=== PATIENT | male | born 1995 | race African-American/Black ===

== ENCOUNTER 2017-10-19 18:16 | Emergency (ER) | payer SELFPAY ==
[~2017-10-19] VITALS: Ht 190.5 cm; Wt 75.7 kg
[2017-10-19] MEDS ORDERED: IBUPROFEN 600MG TABLET PO STA (18:34)
[2017-10-19 18:55] LABS: BASOPHILS % 0.5 % (0.0-2.0); EOSINOPHILS % 1.7 % (0.0-5.0); HEMATOCRIT. 44.8 % (42.0-52.0); LYMPHOCYTES % 49.4 % (20.0-50.0); MEAN CORPUSCULAR HEMOGLOBIN 29.4 pg (28.0-32.0); MEAN CORPUSCULAR VOLUME 87.6 fL (80.0-94.0); MEAN PLATELET VOLUME 8.5 fl (7.4-10.4); MONOCYTES % 10.4 % (2.0-8.0); PLATELET 173 x1000/uL (130-400); RED BLOOD CELL COUNT 5.11 mill/uL (4.7-6.1)
[2017-10-19 18:56] LABS: CHLORIDE 105 mEq/L (98-107)
[2017-10-19 19:03] LABS: CARBON DIOXIDE 29 mEq/L (21-32)
[2017-10-19 21:04] VITALS: BP 138/77
== END 2017-10-19 21:06 | disposition home or self-care (01) ==
LOC: ER 18:46
DX: R07.89 Other chest pain (principal); F12.90 Cannabis use, unspecified, uncomplicated
CPT/HCPCS: 36415; 71010; 80053; 85025; 93005; 99285

== ENCOUNTER 2021-02-25 14:26 | Emergency (ER) | payer SELFPAY ==
[~2021-02-25] VITALS: Ht 190.5 cm; Wt 80.0 kg
[2021-02-25] MEDS ORDERED: NAPR-1176 MT (14:50)
[2021-02-25] MEDS ORDERED: DOCU-150 MT (14:50)
[2021-02-25] MEDS ORDERED: HYDR30CR80 TP (14:50)
[2021-02-25] MEDS ORDERED: HYDR25SU37 RC (14:50)
[2021-02-25] MEDS ORDERED: KETOROLAC 60MG/2ML VIAL IM ONE (15:00)
[2021-02-25] MEDS ORDERED: HYDROCORTISONE 1% RECTAL CREAM 30GM PR SCH (15:00)
[2021-02-25] MEDS ORDERED: HYDROCODONE/ACETAMINOPHEN 10/325MG TABLET PO ONE (15:00)
[2021-02-25 15:39] VITALS: BP 136/83
[2021-02-26] MEDS ORDERED: IBUP-2028 MT (20:58)
[2021-02-26] MEDS ORDERED: PSYL0.4C2 MT (20:58)
== END 2021-02-25 15:39 | disposition home or self-care (01) ==
LOC: ER 14:35
DX: K64.4 Residual hemorrhoidal skin tags (principal); F12.10 Cannabis abuse, uncomplicated; Z79.899 Other long term (current) drug therapy
CPT/HCPCS: 96372; 99283; J1885

== ENCOUNTER 2021-02-26 20:08 | Emergency (ER) | payer SELFPAY ==
[~2021-02-26] VITALS: Ht 185.4 cm; Wt 80.0 kg
[~2021-02-26 20:08] MED LIST: DOCU-150 MT; HYDR25SU37 RC; HYDR30CR80 TP; NAPR-1176 MT
[2021-02-26] MEDS ORDERED: IBUPROFEN 600MG TABLET PO ONE (20:45)
[2021-02-26] MEDS ORDERED: IBUP-2028 MT (20:58)
[2021-02-26] MEDS ORDERED: PSYL0.4C2 MT (20:58)
[2021-02-26] MEDS ORDERED: HYDROCODONE/ACETAMINOPHEN 5/325MG TABLET PO ONE (21:00)
[2021-02-26] MEDS ORDERED: KETOROLAC 60MG/2ML VIAL IM ONE (21:00)
[2021-02-26 21:01] VITALS: BP 124/61
== END 2021-02-26 21:57 | disposition home or self-care (01) ==
LOC: ER 20:08
DX: K64.4 Residual hemorrhoidal skin tags (principal); K60.2 Anal fissure, unspecified; R03.0 Elevated blood-pressure reading, without diagnosis of hypertension
CPT/HCPCS: 96372; 99283; J1885

== ENCOUNTER 2021-02-28 12:56 | Inpatient (IN) | payer OTHER ==
[~2021-02-28] VITALS: Ht 190.5 cm; Wt 80.3 kg
[~2021-02-28 12:56] MED LIST changes: +IBUP-2028 MT; +PSYL0.4C2 MT
[2021-02-28] MEDS ORDERED: MORPHINE SULFATE 4 MG/ML CPJ (NOT FOR IM USE) IV STA (13:34)
[2021-02-28] MEDS ORDERED: ONDANSETRON HCL 4MG/2ML INJ IV STA (13:34)
[2021-02-28] MEDS ORDERED: SODIUM CHLORIDE 0.9% 1,000 ML IV ONE (13:45)
[2021-02-28] MEDS ORDERED: ONDANSETRON HCL 4MG/2ML INJ IV ONE (13:45)
[2021-02-28] MEDS ORDERED: VANCOMYCIN 1 G PREMIX 200 ML IV SCH (13:45)
[2021-02-28] MEDS ORDERED: PIPERACILLIN/TAZOBACTAM 3.375GM/50ML PREMIX IV ONE (13:45)
[2021-02-28] MEDS ORDERED: PIPERACILLIN/TAZ 3.375G PREMIX 50 ML IV NR (14:00)
[2021-02-28 15:05] LABS: HEMATOCRIT. 38.5 % (42.0-52.0); HEMOGLOBIN. 12.9 g/dL (14.0-18.0); MEAN CORPUSCULAR HEMOGLOBIN 29.3 pg (28.0-32.0); MEAN CORPUSCULAR VOLUME 87.2 fL (80.0-94.0); MEAN PLATELET VOLUME 8.2 fl (7.4-10.4); PLATELET 286 x1000/uL (130-400); RED BLOOD CELL COUNT 4.41 mill/uL (4.7-6.1); RED CELL DISTRIBUTION WIDTH 13.8 % (11.6-14.6)
[2021-02-28 15:12] LABS: CHLORIDE 97 mEq/L (98-107)
[2021-02-28 15:13] LABS: INR 1.2; PROTHROMBIN TIME 12.8 sec (9.6-11.0)
[2021-02-28 15:18] LABS: ETHANOL BLOOD < 10 mg/dL
[2021-02-28] MEDS ORDERED: LIDOCAINE HCL 1% 20ML VIAL (Pyxis) INJ INFIL ONE (15:30)
[2021-02-28 16:26] LABS: PLATELET ESTIMATE NORMAL
[2021-02-28 17:24] VITALS: BP 134/73
[2021-02-28] MEDS: MORPHINE SULFATE 2 MG/ML CPJ (NOT FOR IM USE) IV PRN (18:24)
[2021-02-28] MEDS: SODIUM CHLORIDE 0.9% 1,000 ML IV SCH (18:30)
[2021-02-28 20:34] VITALS: BP 133/83
[2021-02-28] MEDS: VANCOMYCIN 1 G PREMIX 200 ML IV SCH (21:53)
[2021-02-28] MEDS: PIPERACILLIN/TAZOBACTAM 3.375 G in DEXT 5% WATER 100 ML IV SCH (23:37)
[2021-03-01] MEDS ORDERED: PIPERACILLIN/TAZOBACTAM 3.375 G/VIAL IV SCH
[2021-03-01] MEDS: HYDROCODONE/APAP 7.5/325MG 1 TAB TABLET PO PRN (01:41)
[2021-03-01] MEDS: SODIUM CHLORIDE 0.9% 1,000 ML IV SCH ×3 (05:33→22:46)
[2021-03-01] MEDS: PIPERACILLIN/TAZOBACTAM 3.375 G in DEXT 5% WATER 100 ML IV SCH ×3 (05:33→17:40)
[2021-03-01] MEDS: VANCOMYCIN 1 G PREMIX 200 ML IV SCH ×3 (06:15→22:46)
[2021-03-01 06:19] LABS: HEMATOCRIT. 34.9 % (42.0-52.0); HEMOGLOBIN. 11.5 g/dL (14.0-18.0); MEAN CORPUSCULAR VOLUME 87.8 fL (80.0-94.0); MEAN PLATELET VOLUME 8.8 fl (7.4-10.4); PLATELET 287 x1000/uL (130-400); RED BLOOD CELL COUNT 3.98 mill/uL (4.7-6.1); RED CELL DISTRIBUTION WIDTH 14.1 % (11.6-14.6)
[2021-03-01 06:24] LABS: CHLORIDE 98 mEq/L (98-107)
[2021-03-01 08:00] VITALS: BP 108/70
[2021-03-01 12:00] VITALS: BP 107/75
[2021-03-01] MEDS ORDERED: IOHEXOL-300 100 ML BOTTLE ONE (12:33)
[2021-03-01 16:00] VITALS: BP 103/66
[2021-03-01] MEDS: MORPHINE SULFATE 2 MG/ML CPJ (NOT FOR IM USE) IV PRN (16:06)
[2021-03-01] MEDS: ACETAMINOPHEN 325MG TABLET PO PRN (17:40)
[2021-03-01 18:55] LABS: PLATELET ESTIMATE NORMAL
[2021-03-01 20:25] VITALS: BP 119/73
[2021-03-02] VITALS (7 sets, daily range): BP systolic 112–126; BP diastolic 69–82
[2021-03-02] MEDS: HYDROCODONE/APAP 7.5/325MG 1 TAB TABLET PO PRN (00:01)
[2021-03-02] MEDS: PIPERACILLIN/TAZOBACTAM 3.375 G in DEXT 5% WATER 100 ML IV SCH ×5 (00:01→23:48)
[2021-03-02] MEDS: MORPHINE SULFATE 2 MG/ML CPJ (NOT FOR IM USE) IV PRN (05:10)
[2021-03-02 07:01] LABS: HEMATOCRIT. 35.4 % (42.0-52.0); HEMOGLOBIN. 11.3 g/dL (14.0-18.0); MEAN CORPUSCULAR HEMOGLOBIN 27.9 pg (28.0-32.0); MEAN CORPUSCULAR VOLUME 87.6 fL (80.0-94.0); MEAN PLATELET VOLUME 8.1 fl (7.4-10.4); PLATELET 319 x1000/uL (130-400); RED BLOOD CELL COUNT 4.05 mill/uL (4.7-6.1)
[2021-03-02 07:19] LABS: CHLORIDE 103 mEq/L (98-107)
[2021-03-02 07:28] LABS: TOTAL IRON BINDING CAPACITY 199 ug/dL (250-450)
[2021-03-02] MEDS: VANCOMYCIN 1 G PREMIX 200 ML IV SCH ×3 (07:33→22:30)
[2021-03-02 07:46] LABS: VITAMIN B12 SERUM 1455 pg/mL (211-911)
[2021-03-02] MEDS ORDERED: ERGOCALCIFEROL 50000UNITS CAPSULE PO SCH (08:00)
[2021-03-02 08:11] LABS: A/G RATIO 0.6 (0.7-1.7); ALBUMIN 2.3 g/dL (2.9-4.4); ALPHA-1-GLOBULIN 0.5 g/dL (0.0-0.4); ALPHA-2-GLOBULIN 0.9 g/dL (0.4-1.0); GAMMA GLOBULINS 1.6 g/dL (0.4-1.8); GLOBULIN TOTAL 4.1 g/dL (2.2-3.9); M-SPIKE Not Observed g/dL (Not Observed); TOTAL PROTEIN SERUM 6.4 g/dL (6.0-8.5)
[2021-03-02 08:30] LABS: PHOSPHORUS 4.5 mg/dL (2.5-4.9)
[2021-03-02] MEDS: SODIUM CHLORIDE 0.9% 1,000 ML IV SCH ×2 (08:47→18:49)
[2021-03-02 12:38] LABS: PLATELET ESTIMATE NORMAL
[2021-03-02] MEDS: ACETAMINOPHEN 325MG TABLET PO PRN (14:33)
[2021-03-03] VITALS: BP 116/78
[2021-03-03] MEDS: ACETAMINOPHEN 325MG TABLET PO PRN ×2 (02:08→12:45)
[2021-03-03 04:00] VITALS: BP 117/70
[2021-03-03] MEDS: SODIUM CHLORIDE 0.9% 1,000 ML IV SCH ×2 (05:23→15:25)
[2021-03-03] MEDS: PIPERACILLIN/TAZOBACTAM 3.375 G in DEXT 5% WATER 100 ML IV SCH ×2 (05:23→12:40)
[2021-03-03] MEDS: VANCOMYCIN 1 G PREMIX 200 ML IV SCH (06:25)
[2021-03-03 07:17] LABS: CHLORIDE 103 mEq/L (98-107)
[2021-03-03 07:30] LABS: HEMATOCRIT. 34.5 % (42.0-52.0); HEMOGLOBIN. 11.4 g/dL (14.0-18.0); MEAN CORPUSCULAR HEMOGLOBIN 28.8 pg (28.0-32.0); MEAN CORPUSCULAR VOLUME 87.2 fL (80.0-94.0); PLATELET 320 x1000/uL (130-400); RED BLOOD CELL COUNT 3.95 mill/uL (4.7-6.1); RED CELL DISTRIBUTION WIDTH 14.2 % (11.6-14.6)
[2021-03-03 08:00] VITALS: BP 118/75
[2021-03-03] MEDS ORDERED: POTASSIUM CHLORIDE 20MEQ TABLET SR PO NR (10:00)
[2021-03-03 12:00] VITALS: BP 115/76
[2021-03-03] MEDS ORDERED: CEFTRIAXONE 2 G PREMIX 50 ML IV SCH (13:15)
[2021-03-03 13:56] LABS: PLATELET ESTIMATE NORMAL
[2021-03-03] MEDS: CEFTRIAXONE 2 G in DEXTROSE 5% WATER 50 ML IV SCH (15:23)
[2021-03-03] MEDS: METRONIDAZOLE 500MG TABLET PO SCH ×2 (15:24→21:12)
[2021-03-03 16:00] VITALS: BP 118/67
[2021-03-03] MEDS: LOSARTAN POTASSIUM 25 MG TABLET PO SCH (20:00)
[2021-03-03] MEDS ORDERED: NAPROXEN 250MG TABLET PO SCH (20:00)
[2021-03-03 20:31] VITALS: BP 125/83
[2021-03-03] MEDS: CARVEDILOL 3.125 MG TABLET PO SCH (21:12)
[2021-03-03] MEDS: NAPROXEN 250MG TABLET PO SCH (21:12)
[2021-03-03 21:47] LABS: *BARBITURATES SCREEN URINE NEGATIVE (NEGATIVE)
[2021-03-03 21:48] LABS: *AMPHETAMINES SCREEN URINE NEGATIVE (NEGATIVE); *BENZODIAZEPINES SCREEN URINE NEGATIVE (NEGATIVE); *COCAINE SCREEN URINE NEGATIVE (NEGATIVE); METHADONE URINE SCREEN NEGATIVE (NEGATIVE); OPIATES URINE SCREEN NEGATIVE (NEGATIVE)
[2021-03-03 21:49] LABS: CANNABINOID URINE SCREEN PRESUMTIVE POSITIVE (NEGATIVE); PHENCYCLIDINE URINE SCREEN NEGATIVE (NEGATIVE)
[2021-03-04] VITALS: BP 124/63
[2021-03-04] MEDS: SODIUM CHLORIDE 0.9% 1,000 ML IV SCH ×3 (01:43→21:27)
[2021-03-04 04:00] VITALS: BP 116/73
[2021-03-04] MEDS: METRONIDAZOLE 500MG TABLET PO SCH ×3 (05:56→21:26)
[2021-03-04 06:32] LABS: HEMATOCRIT. 34.9 % (42.0-52.0); HEMOGLOBIN. 11.5 g/dL (14.0-18.0); MEAN CORPUSCULAR HEMOGLOBIN 28.6 pg (28.0-32.0); MEAN CORPUSCULAR VOLUME 86.7 fL (80.0-94.0); MEAN PLATELET VOLUME 7.3 fl (7.4-10.4); PLATELET 337 x1000/uL (130-400); RED BLOOD CELL COUNT 4.02 mill/uL (4.7-6.1); RED CELL DISTRIBUTION WIDTH 14.2 % (11.6-14.6)
[2021-03-04 06:47] LABS: CHLORIDE 104 mEq/L (98-107)
[2021-03-04] MEDS ORDERED: POTASSIUM CHLORIDE 20MEQ TABLET SR PO SCH (08:00)
[2021-03-04] MEDS: DOCUSATE SODIUM 100MG CAPSULE PO SCH ×2 (09:00→17:00)
[2021-03-04] MEDS: LOSARTAN POTASSIUM 25 MG TABLET PO SCH (09:00)
[2021-03-04] MEDS: CARVEDILOL 3.125 MG TABLET PO SCH ×2 (09:00→21:26)
[2021-03-04 09:37] LABS: PLATELET ESTIMATE NORMAL
[2021-03-04] MEDS: NAPROXEN 250MG TABLET PO SCH ×2 (09:53→18:32)
[2021-03-04] MEDS: CEFTRIAXONE 2 G in DEXTROSE 5% WATER 50 ML IV SCH (14:02)
[2021-03-04 20:00] VITALS: BP 118/78
[2021-03-05] VITALS: BP 126/87
[2021-03-05 04:00] VITALS: BP 120/76
[2021-03-05] MEDS: METRONIDAZOLE 500MG TABLET PO SCH ×2 (05:40→13:46)
[2021-03-05 06:09] LABS: HEMATOCRIT. 35.9 % (42.0-52.0); HEMOGLOBIN. 11.8 g/dL (14.0-18.0); MEAN CORPUSCULAR HEMOGLOBIN 28.4 pg (28.0-32.0); MEAN CORPUSCULAR VOLUME 86.5 fL (80.0-94.0); MEAN PLATELET VOLUME 7.5 fl (7.4-10.4); PLATELET 348 x1000/uL (130-400); RED BLOOD CELL COUNT 4.15 mill/uL (4.7-6.1); RED CELL DISTRIBUTION WIDTH 14.4 % (11.6-14.6)
[2021-03-05 06:11] LABS: CHLORIDE 106 mEq/L (98-107)
[2021-03-05 08:00] VITALS: BP 119/65
[2021-03-05] MEDS: DOCUSATE SODIUM 100MG CAPSULE PO SCH ×2 (08:05→17:00)
[2021-03-05] MEDS: SODIUM CHLORIDE 0.9% 1,000 ML IV SCH ×2 (08:05→17:05)
[2021-03-05] MEDS: NAPROXEN 250MG TABLET PO SCH (08:05)
[2021-03-05] MEDS: LOSARTAN POTASSIUM 25 MG TABLET PO SCH (08:05)
[2021-03-05] MEDS: CARVEDILOL 3.125 MG TABLET PO SCH ×2 (08:06→10:37)
[2021-03-05 10:42] LABS: PLATELET ESTIMATE NORMAL
[2021-03-05 12:00] VITALS: BP 125/85
[2021-03-05] MEDS ORDERED: NITROGLYCERIN SPRAY/4.9GM CAN TL NR (12:00)
[2021-03-05] MEDS ORDERED: IOHEXOL-350 100 ML BOTTLE ONE (12:48)
[2021-03-05] MEDS: CEFTRIAXONE 2 G in DEXTROSE 5% WATER 50 ML IV SCH (14:13)
[2021-03-05] MEDS ORDERED: FUROSEMIDE 20MG TABLET PO PRN (15:45)
[2021-03-05 16:00] VITALS: BP 120/79
[2021-03-05 18:01] VITALS: BP 120/61
== END 2021-03-05 18:46 | disposition home health service (06) | DRG 854 ==
LOC: ER 12:56 → 6WST 14:22 → ENRESERV 14:56
PROVIDERS: ADMIT Internal Medicine Endocrinology, Diabetes & Metabolism; ATTEND Internal Medicine Endocrinology, Diabetes & Metabolism
PROC: 0D9P0ZZ Drainage of Rectum, Open Approach (ICD-10-PCS; principal; 2021-02-28)
DX: A40.9 Streptococcal sepsis, unspecified (principal); K61.1 Rectal abscess; I42.9 Cardiomyopathy, unspecified; I31.9 Disease of pericardium, unspecified; E88.09 Other disorders of plasma-protein metabolism, not elsewhere classified; K64.4 Residual hemorrhoidal skin tags; E55.9 Vitamin D deficiency, unspecified; Z82.49 Family history of ischemic heart disease and other diseases of the circulatory system
CPT/HCPCS: 36415; 71045; 74177; 75571; 80048; 80053; 80202; 80305; 80320; 82306; 82607; 83036; 83540; 83550; 83605; 83735; 83880; 84100; 84145; 84155; 84165; 84439; 84443; 84484; 85025; 86592; 86703; 86850; 86900; 87070; 87077; 87186; 93005; 93306; 99291; C1893; J0696; J2270; J2405; J2543; J3370; J3490; J7030; J7060; Q9967; G0480

== ENCOUNTER 2021-07-26 14:21 | Inpatient (IN) | payer OTHER ==
[~2021-07-26] VITALS: Ht 188 cm; Wt 73.5 kg
[2021-07-26] MEDS ORDERED: PANTOPRAZOLE SODIUM 40 MG/VIAL IV STA (15:04)
[2021-07-26] MEDS ORDERED: METOCLOPRAMIDE HCL 10MG/2ML VIAL IV STA (15:04)
[2021-07-26] MEDS ORDERED: SODIUM CHLORIDE 0.9% 1,000 ML IV ONE (15:15)
[2021-07-26 15:53] LABS: HEMATOCRIT. 42.3 % (42.0-52.0); MEAN CORPUSCULAR HEMOGLOBIN 28.1 pg (28.0-32.0); MEAN CORPUSCULAR VOLUME 84.6 fL (80.0-94.0); PLATELET 241 x1000/uL (130-400); RED CELL DISTRIBUTION WIDTH 15.7 % (11.6-14.6)
[2021-07-26 15:58] LABS: CHLORIDE 104 mEq/L (98-107)
[2021-07-26 15:59] LABS: INR 1.1; PROTHROMBIN TIME 12.2 sec (9.6-11.0)
[2021-07-26] MEDS ORDERED: HALOPERIDOL LACTATE 5MG/ML VIAL IM NR (16:00)
[2021-07-26 16:22] LABS: PLATELET ESTIMATE NORMAL
[2021-07-26] MEDS ORDERED: METRONIDAZOLE 500 MG PREMIX 100 ML IV NR (17:00)
[2021-07-26] MEDS ORDERED: CEFTRIAXONE 1 G PREMIX 50 ML IV NR (17:00)
[2021-07-26] MEDS ORDERED: GUAIFENESIN 200MG/10ML SUGAR FREE UDC PO PRN (21:45)
[2021-07-26] MEDS ORDERED: ONDANSETRON HCL 4MG/2ML INJ IV PRN (21:45)
[2021-07-26] MEDS ORDERED: ZOLPIDEM TARTRATE 5MG TABLET PO PRN (21:45)
[2021-07-26] MEDS ORDERED: TRAMADOL 50MG TABLET PO PRN (21:45)
[2021-07-26] MEDS ORDERED: IPRATROPIUM/ALBUTEROL 0.5-3(2.5)MG/3ML NEB NEB PRN (21:45)
[2021-07-26] MEDS ORDERED: DOCUSATE SODIUM 100MG CAPSULE PO PRN (21:45)
[2021-07-26] MEDS ORDERED: CLONIDINE 0.1MG TABLET PO PRN (21:45)
[2021-07-26] MEDS ORDERED: KETOROLAC 15MG/ML VIAL IV PRN (21:45)
[2021-07-26] MEDS ORDERED: ACETAMINOPHEN 325MG TABLET PO PRN ×2 (21:45)
[2021-07-26] MEDS ORDERED: MAGNESIUM/ALUMINUM HYDROXIDE/SIMETHICONE 30ML UDC PO PRN (21:45)
[2021-07-26] MEDS ORDERED: NITROGLYCERIN 0.4MG TABLET SL SL PRN (21:45)
[2021-07-26] MEDS ORDERED: SODIUM CHLORIDE 0.9% 1,000 ML IV SCH (21:45)
[2021-07-26] MEDS ORDERED: PIPERACILLIN/TAZ 3.375G PREMIX 50 ML IV SCH (22:00)
[2021-07-26] MEDS ORDERED: IOHEXOL-300 100 ML BOTTLE ONE (23:20)
[2021-07-27 05:46] LABS: CHLORIDE 103 mEq/L (98-107)
[2021-07-27 05:47] LABS: BASOPHILS % 0.1 % (0.0-2.0); EOSINOPHILS % 0.2 % (0.0-5.0); HEMATOCRIT. 34.4 % (42.0-52.0); HEMOGLOBIN. 11.3 g/dL (14.0-18.0); LYMPHOCYTES % 8.5 % (20.0-50.0); MEAN CORPUSCULAR HEMOGLOBIN 27.9 pg (28.0-32.0); MEAN CORPUSCULAR VOLUME 84.7 fL (80.0-94.0); MEAN PLATELET VOLUME 8.1 fl (7.4-10.4); MONOCYTES % 9.5 % (2.0-8.0); NEUTROPHILS % 81.7 % (40.0-76.0); PLATELET 213 x1000/uL (130-400); RED BLOOD CELL COUNT 4.06 mill/uL (4.7-6.1); RED CELL DISTRIBUTION WIDTH 15.6 % (11.6-14.6)
[2021-07-27 05:52] LABS: PHOSPHORUS 2.7 mg/dL (2.5-4.9)
[2021-07-27] MEDS ORDERED: NALOXONE HCL 0.4MG/ML VIAL IV PRN (08:00)
[2021-07-27] MEDS: ASCORBIC ACID 500 MG TABLET PO SCH ×2 (09:00→21:32)
[2021-07-27] MEDS: CHOLECALCIFEROL (D3) 1000 UNIT TABLET PO SCH (09:00)
[2021-07-27] MEDS: ZINC SULFATE 220 MG ( 50 ) CAPSULE PO SCH (09:00)
[2021-07-27] MEDS: FAMOTIDINE 20MG TABLET PO SCH ×2 (09:00→21:33)
[2021-07-27] MEDS ORDERED: BUPIVACAINE HCL 0.5% (5MG/ML) 50ML ONE (09:32)
[2021-07-27] MEDS ORDERED: BUPIVACAINE HCL/PF 0.5% (5MG/ML) 10ML ONE (09:32)
[2021-07-27] MEDS ORDERED: SKIN ADHESIVE 0.7 GM EA TOP ONE (09:33)
[2021-07-27 10:15] VITALS: BP 125/59
[2021-07-27] MEDS ORDERED: FENTANYL CITRATE/PF 50MCG/ML 2ML VIAL ONE ×2 (11:40→11:56)
[2021-07-27] MEDS ORDERED: PROPOFOL 200MG/20ML VIAL IV ONE (11:41)
[2021-07-27] MEDS ORDERED: MIDAZOLAM HCL 2 MG/2 ML VIAL ONE (11:41)
[2021-07-27] MEDS ORDERED: METOCLOPRAMIDE HCL 10MG/2ML VIAL ONE (11:41)
[2021-07-27] MEDS ORDERED: ONDANSETRON HCL 4MG/2ML INJ ONE (11:41)
[2021-07-27] MEDS ORDERED: SUCCINYLCHOLINE CHLORIDE 200MG/10ML IV ONE (11:41)
[2021-07-27] MEDS ORDERED: GLYCOPYRROLATE 0.2 MG/ML 2ML VIAL ONE (11:41)
[2021-07-27] MEDS ORDERED: SODIUM CHLORIDE 0.9% 1,000 ML IV ONE (12:15)
[2021-07-27] MEDS ORDERED: MORPHINE SULFATE 2 MG/ML CPJ (NOT FOR IM USE) IV PRN ×2 (12:15→15:00)
[2021-07-27] MEDS ORDERED: ONDANSETRON HCL 4MG/2ML INJ IV PRN ×2 (12:15)
[2021-07-27] MEDS ORDERED: MEPERIDINE HCL/PF 25MG/ML CPJ IV PRN (12:15)
[2021-07-27] MEDS: MEPERIDINE HCL/PF 25MG/ML CPJ IV PRN ×2 (12:27→16:19)
[2021-07-27] MEDS ORDERED: POLYMYXIN B SULFATE 500000 UNITS/VIAL ONE (12:38)
[2021-07-27 14:00] VITALS: BP 114/71
[2021-07-27] MEDS: PIPERACILLIN/TAZOBACTAM 3.375G in DEXT 5% WATER 50ML IV SCH ×3 (14:00→21:30)
[2021-07-27] MEDS ORDERED: MORPHINE SULFATE 4 MG/ML CPJ (NOT FOR IM USE) IV PRN (15:00)
[2021-07-27] MEDS ORDERED: HYDROCODONE/ACETAMINOPHEN 5/325MG TABLET PO PRN ×2 (15:00)
[2021-07-27 16:00] VITALS: BP 118/72
[2021-07-27] MEDS: SODIUM CHLORIDE 0.9% INJ 3ML FLUSH IVF SCH ×2 (16:22→21:33)
[2021-07-27] MEDS: DEXT 5%/0.45% NACL KCL 20MEQ/L 1,000 ML IV SCH (16:42)
[2021-07-27 20:00] VITALS: BP 119/79
[2021-07-28] VITALS: BP 110/66
[2021-07-28 04:12] VITALS: BP 115/75
[2021-07-28] MEDS: PIPERACILLIN/TAZOBACTAM 3.375G in DEXT 5% WATER 50ML IV SCH ×3 (05:29→21:57)
[2021-07-28] MEDS: SODIUM CHLORIDE 0.9% INJ 3ML FLUSH IVF SCH ×3 (05:34→21:57)
[2021-07-28 08:00] VITALS: BP 127/82
[2021-07-28] MEDS: CHOLECALCIFEROL (D3) 1000 UNIT TABLET PO SCH (08:38)
[2021-07-28] MEDS: ZINC SULFATE 220 MG ( 50 ) CAPSULE PO SCH (08:39)
[2021-07-28] MEDS: ASCORBIC ACID 500 MG TABLET PO SCH ×2 (08:39→20:37)
[2021-07-28] MEDS: FAMOTIDINE 20MG TABLET PO SCH ×2 (08:39→20:37)
[2021-07-28] MEDS: DEXT 5%/0.45% NACL KCL 20MEQ/L 1,000 ML IV SCH ×2 (11:19→20:37)
[2021-07-28 12:00] VITALS: BP 119/76
[2021-07-28 16:00] VITALS: BP 130/70
[2021-07-28 20:00] VITALS: BP 131/79
[2021-07-29] VITALS: BP 127/76
[2021-07-29 04:00] VITALS: BP 125/72
[2021-07-29] MEDS: DEXT 5%/0.45% NACL KCL 20MEQ/L 1,000 ML IV SCH (06:01)
[2021-07-29] MEDS: SODIUM CHLORIDE 0.9% INJ 3ML FLUSH IVF SCH (06:01)
[2021-07-29] MEDS: PIPERACILLIN/TAZOBACTAM 3.375G in DEXT 5% WATER 50ML IV SCH (06:01)
[2021-07-29 08:00] VITALS: BP 109/66
[2021-07-29] MEDS: FAMOTIDINE 20MG TABLET PO SCH (10:00)
[2021-07-29] MEDS: ASCORBIC ACID 500 MG TABLET PO SCH (10:00)
[2021-07-29] MEDS: CHOLECALCIFEROL (D3) 1000 UNIT TABLET PO SCH (10:00)
[2021-07-29] MEDS: ZINC SULFATE 220 MG ( 50 ) CAPSULE PO SCH (10:00)
[2021-07-29 11:55] VITALS: BP 109/66
[2021-07-30] MEDS ORDERED: CEFP200T14 MT (14:52)
== END 2021-07-29 12:15 | disposition home or self-care (01) | DRG 854 ==
LOC: ER 14:21 → SUPCPDRO 22:35 → MICUSO 07-27 03:55 → 8WST 07-27 07:45
PROVIDERS: ADMIT Internal Medicine; ATTEND Internal Medicine
PROC: 0D9P0ZZ Drainage of Rectum, Open Approach (ICD-10-PCS; principal; 2021-07-27)
PROC: 0D9P0ZZ Drainage of Rectum, Open Approach (ICD-10-PCS; 2021-07-27)
DX: A41.9 Sepsis, unspecified organism (principal); K61.1 Rectal abscess; F12.10 Cannabis abuse, uncomplicated; Z20.822 Contact with and (suspected) exposure to COVID-19
CPT/HCPCS: 36415; 74177; 80053; 83036; 83605; 83735; 84100; 85025; 87070; 87075; 87077; 87186; 87426; 99291; J0330; J0696; J1630; J2175; J2250; J2405; J2543; J2704; J2765; J3010; J3490; J7030; J7060; Q9967

== ENCOUNTER 2022-08-12 13:54 | Inpatient (IN) | payer BC, OTHER ==
[~2022-08-12] VITALS: Ht 182.9 cm; Wt 62.2 kg
[~2022-08-12 13:54] MED LIST changes: +CEFP200T14 MT; -DOCU-150 MT; -HYDR25SU37 RC; -HYDR30CR80 TP; -IBUP-2028 MT; -NAPR-1176 MT; -PSYL0.4C2 MT
[2022-08-12] MEDS ORDERED: ONDANSETRON HCL 4MG/2ML INJ IV STA (14:16)
[2022-08-12] MEDS ORDERED: MORPHINE SULFATE 4 MG/ML CPJ (NOT FOR IM USE) IV STA (14:16)
[2022-08-12] MEDS ORDERED: VANCOMYCIN 1G PREMIX 200 ML IV ONE (14:30)
[2022-08-12] MEDS ORDERED: SODIUM CHLORIDE 0.9% 1000ML BAG (SEPSIS BOLUS) IV ONE (14:30)
[2022-08-12] MEDS ORDERED: PIPERACILLIN/TAZ 3.375G PREMIX 50 ML IV ONE (14:30)
[2022-08-12 15:36] LABS: BASOPHILS % 0.1 % (0.0-2.0); EOSINOPHILS % 0.9 % (0.0-5.0); HEMATOCRIT. 36.3 % (42.0-52.0); LYMPHOCYTES % 10.8 % (20.0-50.0); MEAN CORPUSCULAR VOLUME 87.9 fL (80.0-94.0); MEAN PLATELET VOLUME 8.7 fl (7.4-10.4); MONOCYTES % 8.5 % (2.0-8.0); NEUTROPHILS % 79.7 % (40.0-76.0); PLATELET 297 x1000/uL (130-400); RED BLOOD CELL COUNT 4.13 mill/uL (4.7-6.1); RED CELL DISTRIBUTION WIDTH 15.5 % (11.6-14.6)
[2022-08-12 15:39] LABS: CHLORIDE 99 mEq/L (98-107)
[2022-08-12 15:42] LABS: INR 1.2; PARTIAL THROMBOPLASTIN TIME 32.7 sec (23.4-31.0); PROTHROMBIN TIME 12.8 sec (9.6-11.0)
[2022-08-12] MEDS ORDERED: CLINDAMYCIN 600 MG in DEXTROSE 5% WATER 50 ML IV ONE (19:45)
[2022-08-12] MEDS ORDERED: CLINDAMYCIN 600MG PREMIX 50 ML IV NR (20:00)
[2022-08-12] MEDS ORDERED: IOHEXOL-300 100 ML BOTTLE ONE (20:24)
[2022-08-13] VITALS (7 sets, daily range): BP systolic 113–129; BP diastolic 50–86
[2022-08-13] MEDS ORDERED: MORPHINE SULFATE 2 MG/ML CPJ (NOT FOR IM USE) IV PRN (01:15)
[2022-08-13] MEDS ORDERED: VANCOMYCIN 1.25GM PMX (XELLIA) 250 ML IV NR (01:15)
[2022-08-13] MEDS ORDERED: CEFEPIME 1,000 MG in DEXTROSE 5% WATER 50 ML IV SCH (01:15)
[2022-08-13] MEDS: DEXT 5%/0.9% NACL KCL 20MEQ/L 1,000 ML IV SCH ×2 (01:42→09:11)
[2022-08-13] MEDS ORDERED: VANCOMYCIN 1.25GM PMX (XELLIA) 250 ML IV SCH ×2 (03:30→06:30)
[2022-08-13] MEDS: CLINDAMYCIN 900 MG PREMIX 50 ML IV SCH ×3 (06:47→22:42)
[2022-08-13] MEDS: PANTOPRAZOLE SODIUM 40 MG/VIAL IV SCH (09:11)
[2022-08-13] MEDS ORDERED: NALOXONE HCL 0.4MG/ML VIAL IV PRN (09:45)
[2022-08-13] MEDS ORDERED: POLYMYXIN B SULFATE 500000 UNITS/VIAL ONE ×2 (11:21→12:40)
[2022-08-13] MEDS ORDERED: LIDOCAINE 2%/EPINEPHRINE 1:200,000 20 ML VIAL INJ ONE (11:21)
[2022-08-13] MEDS: CEFEPIME 1,000 MG in DEXTROSE 5% WATER 50 ML IV SCH ×2 (11:29→21:46)
[2022-08-13] MEDS ORDERED: PROPOFOL 200MG/20ML VIAL IV ONE (11:34)
[2022-08-13] MEDS ORDERED: FENTANYL CITRATE/PF 50MCG/ML 2ML VIAL ONE (11:34)
[2022-08-13] MEDS ORDERED: MIDAZOLAM HCL 2 MG/2 ML VIAL ONE (11:35)
[2022-08-13] MEDS ORDERED: HYDROCODONE/ACETAMINOPHEN 5/325MG TABLET PO PRN ×2 (12:30)
[2022-08-13] MEDS ORDERED: MORPHINE SULFATE 4 MG/ML CPJ (NOT FOR IM USE) IV PRN (12:30)
[2022-08-13] MEDS ORDERED: ONDANSETRON HCL 4MG/2ML INJ IV PRN ×2 (12:30→13:15)
[2022-08-13] MEDS ORDERED: HYDROMORPHONE HCL/PF 2MG/ML CPJ ONE (12:38)
[2022-08-13] MEDS ORDERED: KETOROLAC 30MG/ML VIAL ONE (12:41)
[2022-08-13] MEDS ORDERED: FENTANYL CITRATE/PF 50MCG/ML 2ML VIAL IV PRN (13:15)
[2022-08-13] MEDS ORDERED: MEPERIDINE HCL/PF 25MG/ML CPJ IV PRN (13:15)
[2022-08-13] MEDS ORDERED: HYDROMORPHONE HCL/PF 2MG/ML CPJ IV PRN (13:15)
[2022-08-13] MEDS: SODIUM CHLORIDE 0.9% INJ 3ML FLUSH IVF SCH ×2 (14:00→22:00)
[2022-08-13] MEDS: DEXT 5%/0.45% NACL KCL 20MEQ/L 1,000 ML IV SCH (15:14)
[2022-08-13] MEDS: VANCOMYCIN 750MG PMX (XELLIA) 150 ML IV SCH ×2 (15:14→22:42)
[2022-08-13 17:37] LABS: HEMATOCRIT. 26.6 % (42.0-52.0); HEMOGLOBIN. 8.7 g/dL (14.0-18.0); MEAN CORPUSCULAR HEMOGLOBIN 28.4 pg (28.0-32.0); MEAN CORPUSCULAR VOLUME 86.7 fL (80.0-94.0); MEAN PLATELET VOLUME 8.1 fl (7.4-10.4); PLATELET 254 x1000/uL (130-400); RED BLOOD CELL COUNT 3.07 mill/uL (4.7-6.1); RED CELL DISTRIBUTION WIDTH 15.3 % (11.6-14.6)
[2022-08-13 18:14] LABS: CHLORIDE 103 mEq/L (98-107)
[2022-08-13 19:18] LABS: PLATELET ESTIMATE NORMAL
[2022-08-13] MEDS: MORPHINE SULFATE 2 MG/ML CPJ (NOT FOR IM USE) IV PRN (23:45)
[2022-08-14] VITALS (9 sets, daily range): BP systolic 116–130; BP diastolic 55–76
[2022-08-14] MEDS: CLINDAMYCIN 900 MG PREMIX 50 ML IV SCH ×2 (05:17→15:00)
[2022-08-14] MEDS: VANCOMYCIN 750MG PMX (XELLIA) 150 ML IV SCH (05:19)
[2022-08-14] MEDS: DEXT 5%/0.45% NACL KCL 20MEQ/L 1,000 ML IV SCH ×2 (05:19→10:30)
[2022-08-14] MEDS: SODIUM CHLORIDE 0.9% INJ 3ML FLUSH IVF SCH (05:19)
[2022-08-14] MEDS: MORPHINE SULFATE 2 MG/ML CPJ (NOT FOR IM USE) IV PRN (05:59)
[2022-08-14 06:53] LABS: HEMATOCRIT. 25.6 % (42.0-52.0); HEMOGLOBIN. 8.4 g/dL (14.0-18.0); MEAN CORPUSCULAR HEMOGLOBIN 28.7 pg (28.0-32.0); MEAN CORPUSCULAR VOLUME 87.5 fL (80.0-94.0); MEAN PLATELET VOLUME 8.2 fl (7.4-10.4); PLATELET 244 x1000/uL (130-400); RED BLOOD CELL COUNT 2.92 mill/uL (4.7-6.1); RED CELL DISTRIBUTION WIDTH 15.4 % (11.6-14.6)
[2022-08-14 07:39] LABS: CHLORIDE 101 mEq/L (98-107)
[2022-08-14 07:46] LABS: VANCOMYCIN TROUGH 14.1 ug/mL (5.0-10.0)
[2022-08-14] MEDS: CEFEPIME 1,000 MG in DEXTROSE 5% WATER 50 ML IV SCH (10:00)
[2022-08-14] MEDS: PANTOPRAZOLE SODIUM 40 MG/VIAL IV SCH (10:00)
[2022-08-14] MEDS ORDERED: HYDROCODONE/ACETAMINOPHEN 5/325MG TABLET PO PRN (12:00)
[2022-08-14] MEDS ORDERED: SULF1TAB48 MT (12:46)
[2022-08-14] MEDS ORDERED: AMOX1TAB16 MT (12:46)
[2022-08-14] MEDS ORDERED: DOCU-138 MT (12:46)
[2022-08-14] MEDS ORDERED: VANCOMYCIN 1GM PMX (XELLIA) 200 ML IV SCH (14:00)
[2022-08-14 17:14] LABS: PLATELET ESTIMATE NORMAL
== END 2022-08-14 17:10 | disposition home health service (06) | DRG 982 ==
LOC: ER 13:54 → MICUSO 18:43 → EDBEDREQTM 18:44 → EDBEDREQ 18:44 → EDBEDREQTM 19:48 → EDBEDREQSVC 19:48 → EDBEDREQ 19:48 → 5EST 08-13 04:23
PROVIDERS: ADMIT Internal Medicine; ATTEND Internal Medicine
PROC: 0JD90ZZ Extraction of Buttock Subcutaneous Tissue and Fascia, Open Approach (ICD-10-PCS; principal; 2022-08-13)
PROC: 0JD90ZZ Extraction of Buttock Subcutaneous Tissue and Fascia, Open Approach (ICD-10-PCS; 2022-08-13)
DX: K61.1 Rectal abscess (principal); E87.1 Hypo-osmolality and hyponatremia; E87.2 Acidosis; Z20.822 Contact with and (suspected) exposure to COVID-19
CPT/HCPCS: 36415; 71045; 74177; 80048; 80053; 80202; 83036; 83605; 85025; 86850; 86900; 87426; 99291; C9113; C9803; J0692; J1170; J1885; J2250; J2270; J2405; J2543; J2704; J3010; J3370; J3490; J7030; J7060; Q9967

== ENCOUNTER 2025-02-02 18:27 | Emergency (ER) | payer SELFPAY ==
[~2025-02-02] VITALS: Ht 188 cm; Wt 74.0 kg
[~2025-02-02 18:27] MED LIST changes: +AMOX1TAB16 MT; +DOCU-138 MT; +SULF1TAB48 MT
[2025-02-02 18:31] VITALS: O2SAT 99
[2025-02-02 18:33] VITALS: BP 128/82; PULSE 92; RESP 16; TEMP 36.9; O2SAT 99
[2025-02-02] MEDS ORDERED: CEPH500C2 MT (20:15)
== END 2025-02-02 20:25 | disposition home or self-care (01) ==
LOC: ER 18:27
DX: N61.1 Abscess of the breast and nipple (principal); F12.90 Cannabis use, unspecified, uncomplicated; Z79.899 Other long term (current) drug therapy
CPT/HCPCS: 99283

== ENCOUNTER 2025-04-10 17:03 | Emergency (ER) | payer SELFPAY ==
[~2025-04-10] VITALS: Ht 177.8 cm; Wt 80.0 kg
[~2025-04-10 17:03] MED LIST changes: +CEPH500C2 MT
[2025-04-10 17:11] VITALS: TEMP 37.2; O2SAT 99
[2025-04-10] MEDS: LIDOCAINE HCL/EPINEPHRINE 1%-EPI 1:100,000 20ML VIAL INFIL ONE (18:45)
[2025-04-10 19:00] LABS: BASOPHILS % 0.3 % (0.0-2.0); EOSINOPHILS % 0.4 % (0.0-5.0); HEMATOCRIT. 42.7 % (42.0-52.0); LYMPHOCYTES % 39.5 % (20.0-50.0); MEAN CORPUSCULAR HGB CONC 32.7 g/dL (31.0-37.0); MEAN CORPUSCULAR VOLUME 85.4 fL (80.0-94.0); MEAN PLATELET VOLUME 7.1 fl (7.4-10.4); MONOCYTES % 7.9 % (2.0-8.0); NEUTROPHILS % 51.9 % (40.0-76.0); PLATELET 279 x1000/uL (130-400); RED BLOOD CELL COUNT 4.99 mill/uL (4.7-6.1); RED CELL DISTRIBUTION WIDTH 16.1 % (11.6-14.6); WHITE BLOOD COUNT 7.5 x1000/uL (4.5-11.0)
[2025-04-10 19:09] LABS: CHLORIDE 102 mEq/L (98-107); POTASSIUM 3.7 mEq/L (3.5-5.1); SODIUM 134 mEq/L (136-145)
[2025-04-10] MEDS: IBUPROFEN 600MG TABLET PO ONE (19:09)
[2025-04-10] MEDS: DOXYCYCLINE HYCLATE 100MG CAPSULE PO ONE (19:09)
[2025-04-10 19:10] LABS: CALCIUM 9.1 mg/dL (8.7-10.4); CARBON DIOXIDE 28 mEq/L (21-32)
[2025-04-10 19:15] LABS: GLUCOSE 105 mg/dL (70-105); UREA NITROGEN BLOOD 6 mg/dL (9-23)
[2025-04-10] MEDS ORDERED: DOXYCYCLINE HYCLATE 100MG CAPSULE PO NR (19:15)
[2025-04-10 19:17] LABS: ALANINE AMINOTRANSFERASE < 7 IU/L (10-49); ALBUMIN 4.5 g/dL (3.2-4.8); ASPARTATE AMINOTRANSFERASE 14 IU/L (<34); BILIRUBIN TOTAL 0.4 mg/dL (0.1-1.0)
[2025-04-10 19:23] LABS: PROTEIN TOTAL 10.2 g/dL (6.0-8.3)
[2025-04-10] MEDS ORDERED: DOXY100C5 MT (23:09)
[2025-04-10] MEDS ORDERED: IBUP-2029 MT (23:09)
[2025-04-10 23:44] VITALS: BP 127/87; PULSE 83; RESP 12; O2SAT 100
== END 2025-04-10 23:46 | disposition home or self-care (01) ==
LOC: ER 17:03
DX: N61.1 Abscess of the breast and nipple (principal); F10.90 Alcohol use, unspecified, uncomplicated; F12.90 Cannabis use, unspecified, uncomplicated; Z79.899 Other long term (current) drug therapy; Y90.9 Presence of alcohol in blood, level not specified
CPT/HCPCS: 80053; 83605; 85025; 87040; 36415; 84145; 71045; 76641; 93005; 99285; J2004; Z7610